=== PATIENT | male | born 1955 | race Two or more races ===

== ENCOUNTER 2024-03-11 11:32 | Emergency (ER) | payer OTHER ==
[~2024-03-11] VITALS: Ht 170.2 cm; Wt 93.0 kg
[2024-03-11] MEDS ORDERED: SYNTHROID88 MCG (11:52)
[2024-03-11] MEDS ORDERED: TOPROL XL50 M1 (11:52)
[2024-03-11] MEDS ORDERED: COZAAR50 MG (11:52)
[2024-03-11] MEDS ORDERED: ABILIFY2 MG (11:53)
[2024-03-11] MEDS ORDERED: TETANUS & DIPHTHERIA TOX,ADULT 0.5 ML VIAL IM ONE (12:45)
[2024-03-11] MEDS ORDERED: CEFTRIAXONE SODIUM 1,000 MG VIAL IV ONE (12:45)
[2024-03-11] MEDS ORDERED: 0.9 % SODIUM CHLORIDE 1,000 ML IV ONE (12:45)
[2024-03-11] MEDS ORDERED: KETOROLAC TROMETHAMINE 60 MG VIAL IM ONE (12:45)
[2024-03-11] MEDS ORDERED: FAMOtidine 10 MG/ML (4ML VIAL) IV ONE (12:45)
[2024-03-11] MEDS ORDERED: LIDOCAINE HCL 1% 10ML VIAL PERCUT ONE (12:45)
[2024-03-11] MEDS ORDERED: ONDANSETRON HCL 2 MG/ML VIAL IV ONE (13:15)
[2024-03-11 13:58] LABS: HEMATOCRIT 51.2 % (39.0-48.0); HEMOGLOBIN 17.8 g/dL (13-16.00); MEAN CORPUSCULAR HEMOGLOBIN 30.1 pg (27.00-32.0); MEAN CORPUSCULAR HGB CONC 34.6 g/dl (32.0-36.0); PLATELET COUNT 131 K/uL (150-450); RED BLOOD COUNT 5.89 M/uL (4.00-6.00); RED CELL DISTRIBUTION WIDTH 13.7 % (11.5-14.5)
[2024-03-11 14:07] LABS: INR 1.07; PARTIAL THROMBOPLASTIN TIME 32.1 SECONDS (22.0-34.0); PROTHROMBIN TIME 11.6 SECONDS (9.0-11.5)
[2024-03-11 14:08] LABS: ALBUMIN 3.9 gm/dL (3.4-5.0); BILIRUBIN TOTAL 0.43 mg/dL (0.3-1.2); CALCIUM 8.3 mg/dL (8.5-10.1); CREATININE SERUM 1.31 mg/dL (0.70-1.30); GFR 54.41; GLOBULINA 3.8 G/DL (2.4-3.5); POTASSIUM 5.13 mEq/L (3.5-5.1); TOTAL PROTEIN 7.7 gm/dL (6.4-8.2)
[2024-03-11] MEDS ORDERED: CEFAZOLIN SODIUM 1,000 MG VIAL IM ONE (14:30)
[2024-03-11 14:39] LABS: PH,URINE 5.5 (5.0-8.0); URINE APPEARANCE Clear; URINE BILIRRUBIN Negative (NEGATIVE); URINE BLOOD Moderate; URINE COLOR Dark Yellow; URINE GLUCOSE Negative (NEGATIVE); URINE KETONE 15 (NEGATIVE); URINE LEUKOCYTE Negative; URINE NITRATE Negative; URINE UROBILINOGEN 0.2 E.U./dl
[2024-03-11 14:42] LABS: URINE CAST 9.77 uL (0.0-1.40); URINE EPITHELIAL CELLS 46.6 uL (0.0-38.8); URINE RBC 7.4 uL (0.0-20.8)
[2024-03-11 14:52] LABS: URINE PROTEIN 100 (NEGATIVE)
[2024-03-11] MEDS ORDERED: PEPCID AC20 MG PO (15:06)
[2024-03-11] MEDS ORDERED: CEPHALEXIN750 MG PO (15:06)
[2024-03-11] MEDS ORDERED: CLINDAMYCIN PHOSPHATE 150 MG/ML (600mg) IV ONE (15:15)
== END 2024-03-11 17:51 | disposition home or self-care (01) ==
LOC: ER 11:33
PROVIDERS: General Practice
DX: S01.82XA Laceration with foreign body of other part of head, initial encounter (principal); R11.2 Nausea with vomiting, unspecified; R55 Syncope and collapse; A90 Dengue fever [classical dengue]; W18.39XA Other fall on same level, initial encounter; Y93.F1 Activity, caregiving, bathing; Y92.012 Bathroom of single-family (private) house as the place of occurrence of the external cause

== ENCOUNTER 2024-03-27 07:52 | Emergency (ER) | payer OTHER ==
[~2024-03-27] VITALS: Ht 167.6 cm; Wt 93.0 kg
[~2024-03-27 07:52] MED LIST: ABILIFY2 MG; CEPHALEXIN750 MG PO; COZAAR50 MG; PEPCID AC20 MG PO; SYNTHROID88 MCG; TOPROL XL50 M1
[2024-03-27] MEDS ORDERED: CEFTRIAXONE SODIUM 1,000 MG VIAL IV ONE (10:45)
[2024-03-27] MEDS ORDERED: TRIPLE ANTIBIOT28 G1 TOP (11:18)
[2024-03-27] MEDS ORDERED: LEVOFLOXACIN500 MG PO (11:18)
[2024-03-27 11:30] VITALS: BP 120/80; O2SAT 100
== END 2024-03-27 11:31 | disposition home or self-care (01) ==
LOC: ER 07:54
DX: Z48.02 Encounter for removal of sutures (principal); T81.30XA Disruption of wound, unspecified, initial encounter